=== PATIENT | male | born 1950 | race Caucasian/White ===

== ENCOUNTER 2020-05-25 11:16 | Emergency (ER) | payer MEDICARE ==
[~2020-05-25] VITALS: Ht 182.3 cm; Wt 100.0 kg
[2020-05-25 11:48] LABS: WHITE BLOOD COUNT 4.5 10^3/uL (4.3-11.0)
[2020-05-25 11:49] LABS: BASOPHILS % (AUTO) 1 % (0-10); EOSINOPHILS # (AUTO) 0.2 10^3/uL (0.0-0.3); EOSINOPHILS % (AUTO) 5 % (0-10); HEMATOCRIT 41 % (40-54); HEMOGLOBIN 14.1 G/DL (13.3-17.7); LYMPHOCYTES # (AUTO) 1.3 X 10^3 (1.0-4.0); LYMPHOCYTES % (AUTO) 28 % (12-44); MEAN CORPUSCULAR HEMOGLOBIN 32 PG (25-34); MEAN CORPUSCULAR HGB CONC 35 G/DL (32-36); MEAN CORPUSCULAR VOLUME 92 FL (80-99); MEAN PLATELET VOLUME 9.2 FL (7.4-10.4); MONOCYTES # (AUTO) 0.4 X 10^3 (0.0-1.0); MONOCYTES % (AUTO) 9 % (0-12); NEUTROPHILS # (AUTO) 2.6 X 10^3 (1.8-7.8); NEUTROPHILS % (AUTO) 57 % (42-75); PLATELET COUNT 253 10^3/uL (130-400)
--- NOTE | 2020-05-25 11:52 | ED Cardiac General ---
History of Present Illness General Chief Complaint: Chest Pain Stated Complaint: CHEST PAIN Nursing Triage Note: Patient reports sudden onset of left precordial chest pain this morning approximately 2 hours prior to arrival to the ED. He described it as a tightness, rates it 3/10. He reports a significant cardiac history of 5 stents, VT, and atrial fibrillation with cardiac ablation. History of Present Illness Date Seen by Provider: May 25, 2020 Time Seen by Provider: 11:20 Initial Comments 69-year-old male with past medical history significant for coronary artery disease, VT in 1997, subsequently 5 stents and a cardiac ablation for SVT presents with chest tightness for the past 2 days, associated shortness of air is worse with minor exertion. Denies any recent illness, fever or chills, cough or wheezing. Denies abdominal pain nausea or vomiting. Sees cardiology at [facility]. Last Cath September 2019. NTG SL UNDERPRESSER HAND: Yes ASA po UNDERPRESSER HAND: Yes Allergies and Home Medications Allergies Coded Allergies: codeine (Verified Allergy, Unknown, 05/25/20) morphine (Verified Allergy, Unknown, 05/25/20) Patient Home Medication List Home Medication List Reviewed: Yes Review of Systems Review of Systems Constitutional: No dizziness, No fever, No malaise, No weakness Respiratory: Denies Cough, Denies Shortness of Air; SOA With Exertion; Denies SOA at Rest, Denies Stridor, Denies Wheezing Cardiovascular: Denies Chest Pain (specifically states, not pain, just tightness), Denies Edema, Denies Irregular Heart Rate, Denies Lightheadedness; Palpitations; Denies Syncope Gastrointestinal: Denies Abdominal Pain, Denies Constipated, Denies Diarrhea, Denies Poor Appetite, Denies Vomiting Musculoskeletal: No back pain, No joint pain Skin: No change in color, No lesions, No lumps Past Pbghrit-Libgeh-Pimnnk Hx Past Med/Social Hx: Reviewed Nursing Past Med/Soc Hx Patient Social History Recent Foreign Travel: No Contact w/Someone Who Travel: No Recent Infectious Disease Expo: No Physical Exam Vital Signs Vital Signs - First Documented 05/25/20 05/25/20 11:20 11:27 Temp 36.5 Pulse 98 Resp 15 B/P (MAP) 154/88 (110) Pulse Ox 98 O2 Delivery Room Air Capillary Refill : Less Than 3 Seconds Height, Weight, BMI Height: '" Weight: lbs. oz. kg; 30.00 BMI Method: General Appearance: No Apparent Distress, WD/WN HEENT: PERRL/EOMI, Normal ENT Inspection Neck: Full Range of Motion, Non Tender, Supple Respiratory: Chest Non Tender, Lungs Clear Cardiovascular: Regular Rate, Rhythm, No Edema, No Gallop, No JVD, No Murmur, Normal Peripheral Pulses Gastrointestinal: Normal Bowel Sounds, Non Tender, Soft Extremity: Normal Capillary Refill, Non Tender, No Calf Tenderness Neurologic/Psychiatric: Alert, Oriented x3, No Motor/Sensory Deficits, Normal Mood/Affect Skin: Normal Color, Warm/Dry Progress/Results/Core Measures Results/Orders Lab Results Laboratory Tests Test 05/25/20 11:25 Range/Units White Blood Count 4.5 4.3-11.0 10^3/uL Red Blood Count 4.47 4.35-5.85 10^6/uL Hemoglobin 14.1 13.3-17.7 G/DL Hematocrit 41 40-54 % Mean Corpuscular Volume 92 80-99 FL Mean Corpuscular Hemoglobin 32 25-34 PG Mean Corpuscular Hemoglobin Concent 35 32-36 G/DL Red Cell Distribution Width 13.2 10.0-14.5 % Platelet Count 253 130-400 10^3/uL Mean Platelet Volume 9.2 7.4-10.4 FL Neutrophils (%) (Auto) 57 42-75 % Lymphocytes (%) (Auto) 28 12-44 % Monocytes (%) (Auto) 9 0-12 % Eosinophils (%) (Auto) 5 0-10 % Basophils (%) (Auto) 1 0-10 % Neutrophils # (Auto) 2.6 1.8-7.8 X 10^3 Lymphocytes # (Auto) 1.3 1.0-4.0 X 10^3 Monocytes # (Auto) 0.4 0.0-1.0 X 10^3 Eosinophils # (Auto) 0.2 0.0-0.3 10^3/uL Basophils # (Auto) 0.0 0.0-0.1 10^3/uL Sodium Level 139 135-145 MMOL/L Potassium Level 4.2 3.6-5.0 MMOL/L Chloride Level 102 98-107 MMOL/L Carbon Dioxide Level 24 21-32 MMOL/L Anion Gap 13 5-14 MMOL/L Blood Urea Nitrogen 14 7-18 MG/DL Creatinine 0.75 0.60-1.30 MG/DL Estimat Glomerular Filtration Rate > 60 BUN/Creatinine Ratio 19 Glucose Level 168 H 70-105 MG/DL Calcium Level 9.6 8.5-10.1 MG/DL Corrected Calcium 9.4 8.5-10.1 MG/DL Total Bilirubin 0.3 0.1-1.0 MG/DL Aspartate Amino Transf (AST/SGOT) 16 5-34 U/L Alanine Aminotransferase (ALT/SGPT) 16 0-55 U/L Alkaline Phosphatase 40 40-136 U/L Troponin I < 0.30 <0.30 NG/ML Total Protein 7.2 6.4-8.2 GM/DL Albumin 4.2 3.2-4.5 GM/DL My Orders Orders - ROVENSTINESAI DO Ed Iv/Invasive Line Start (05/25/20 11:30) Cbc With Automated Diff (05/25/20 11:30) Comprehensive Metabolic Panel (05/25/20 11:30) Troponin I Fs (05/25/20 11:30) Chest 1 View Ap/Pa Only (05/25/20 11:30) Ekg Tracing (05/25/20 11:47) Aspirin Chewable Tablet (Baby Aspirin Ch (05/25/20 12:00) Aspirin Chewable Tablet (Baby Aspirin Ch (05/25/20 12:13) Meclizine Tablet (Antivert Tablet) (05/25/20 12:30) Medications Given in ED Current Medications Medications Dose Ordered Sig/Daisy Route Start Time Stop Time Status Last Admin Dose Admin Aspirin 324 mg ONCE ONCE PO 05/25/20 12:00 05/25/20 12:21 DC 05/25/20 12:18 324 MG Vital Signs/I&O 05/25/20 05/25/20 11:20 11:27 Temp 36.5 Pulse 98 Resp 15 B/P (MAP) 154/88 (110) Pulse Ox 98 O2 Delivery Room Air Room Air Blood Pressure Mean: 110 Progress Progress Note : Progress Note Patient with extensive cardiac history including VT, 5 stents and an ablation. Denies history of atrial fibrillation, states his ablation was for SVT. Currently in A. fib with rate ranging from 50-100 with frequent PVCs. Normal labs. Discussed transfer to [facility] for further monitoring and cardiology consultation. Patient states that he gets [facility] and request something for motion sickness. Given meclizine by mouth. Initial ECG Impression Date: May 25, 2020 Initial ECG Impression Time: 11:25 Initial ECG Rate: 90 Initial ECG Rhythm: A Fib/Flutter Initial ECG Intervals: Normal Initial ECG Impression: Atrial Fibrillation Diagnostic Imaging Comments Date of Exam:05/25/20 CHEST 1 VIEW AP/PA ONLY INDICATION: Chest tightness. FINDINGS: Portable chest. The lungs are well-aerated and clear. No air-trapping. No infiltrate. The heart is not enlarged. No pulmonary edema or hilar adenopathy. No pneumothorax or pleural effusion. No bony abnormalities. IMPRESSION: Normal portable chest. Dictated on workstation # [id number] Dict: 05/25/20 1157 Trans: 05/25/20 1200 [facility] [id number] Interpreted by: BRANDI LEIJA MD Electronically signed by: Departure Impression Primary Impression: Chest pain Qualified Codes: R07.9 - Chest pain, unspecified Additional Impression: New onset a-fib Disposition: 02 XFER SHT-TRM HOSP Condition: Stable Transfer Transfer Reason: Exceeds level of care (Needs Cardio service, pt receives his Cardio care @ [facility] (for continuity of care)) Transfer Progress Notes Spoke to Dr Shanika Cordova @ 1223 she accepts for transfer plans for Cardio consultation Transfer Facility: [facility] Method of Transfer: EMS SAI WARD DO May 25, 2020 11:52
[2020-05-25] MEDS ORDERED: ASPIRIN 81 MG CHEW (CHILDREN'S ASA) PO ONE (12:00)
--- NOTE | 2020-05-25 12:00 | Diagnostic Imaging Report ---
INDICATION: Chest tightness. FINDINGS: Portable chest. The lungs are well-aerated and clear. No air-trapping. No infiltrate. The heart is not enlarged. No pulmonary edema or hilar adenopathy. No pneumothorax or pleural effusion. No bony abnormalities. IMPRESSION: Normal portable chest. Dictated by: Dictated on workstation # [id number]
[2020-05-25 12:09] LABS: ALKALINE PHOSPHATASE 40 U/L (40-136); BILIRUBIN,TOTAL 0.3 MG/DL (0.1-1.0); BUN/CREATININE RATIO 19; CALCIUM 9.6 MG/DL (8.5-10.1); CARBON DIOXIDE 24 MMOL/L (21-32); CHLORIDE 102 MMOL/L (98-107); CREATININE SERUM 0.75 MG/DL (0.60-1.30); GFR ESTIMATED > 60; GLUCOSE 168 MG/DL (70-105); POTASSIUM 4.2 MMOL/L (3.6-5.0); SODIUM 139 MMOL/L (135-145)
[2020-05-25 12:10] LABS: ALANINE AMINOTRANSFERASE 16 U/L (0-55); ALBUMIN 4.2 GM/DL (3.2-4.5); TOTAL PROTEIN 7.2 GM/DL (6.4-8.2)
[2020-05-25] MEDS ORDERED: ASPIRIN 81 MG CHEW (CHILDREN'S ASA) ONE (12:13)
[2020-05-25] MEDS ORDERED: MECLIZINE 25 MG (ANTIVERT) TAB PO ONE (12:30)
[2020-05-25 13:39] VITALS: BP 130/65
== END 2020-05-25 13:39 | disposition short-term general hospital (02) ==
LOC: ER FS 11:20
DX: R07.9 Chest pain, unspecified (principal); I48.91 Unspecified atrial fibrillation; Z88.5 Allergy status to narcotic agent; Z95.5 Presence of coronary angioplasty implant and graft
CPT/HCPCS: 36415; 71045; 80053; 84484; 85025; 93005

== ENCOUNTER 2020-06-08 16:51 | Outpatient (RCR) | payer MEDICARE ==
[2020-05-31 11:56] LABS: INR 1.5 (0.8-1.4); PROTHROMBIN TIME PATIENT 17.9 SEC (12.2-14.7)
[2020-06-02 09:03] LABS: INR 2.1 (0.8-1.4); PROTHROMBIN TIME PATIENT 23.3 SEC (12.2-14.7)
[2020-06-08 17:11] LABS: INR 2.7 (0.8-1.4); PROTHROMBIN TIME PATIENT 28.7 SEC (12.2-14.7)
[2020-06-16 11:07] LABS: INR 4.4 (0.8-1.4); PROTHROMBIN TIME PATIENT 41.5 SEC (12.2-14.7)
[2020-06-23 11:15] LABS: INR 2.7 (0.8-1.4); PROTHROMBIN TIME PATIENT 29.2 SEC (12.2-14.7)
== END 2020-08-29 | disposition home or self-care (01) ==
LOC: LAB FS 16:51
PROVIDERS: ATTEND Internal Medicine Cardiovascular Disease
DX: I48.11 Longstanding persistent atrial fibrillation (principal)
CPT/HCPCS: 36415; 85610

== ENCOUNTER → 2020-11-18 | Outpatient (CLI) | payer MEDICARE ==
[~2020-11-18] MED LIST: BARIUM SUSPENSION 2.1% (VANILLA SILQ) 450 ML PO ONE
--- NOTE | 2020-11-18 11:51 | Diagnostic Imaging Report ---
EXAMINATION: CT Abdomen without intravenous contrast. TECHNIQUE: Multiple contiguous axial images were obtained through the abdomen without the administration of intravenous contrast. All CT scans use one or more of the following dose optimizing techniques: automated exposure control, MA and/or KvP adjustment based on a patient size and exam type, or iterative reconstruction. HISTORY: Abdominal pain and diarrhea. COMPARISON: None available. FINDINGS: Limited views of the lower thorax show pacemaker leads. 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 The liver is normal without focal lesion. There is no biliary ductal dilation. Gallbladder is normal. Pancreas is normal. Spleen is normal. Adrenal glands are normal. The kidneys are normal. There is no hydronephrosis. Visualized bowel is normal in caliber without obstruction or inflammation. No free fluid or air. No abdominal lymphadenopathy. Aorta is normal in caliber without aneurysm. There are no suspicious osseous lesions. IMPRESSION: 1. No acute abnormality in the abdomen. Dictated by: Dictated on workstation # [id number]
== END ==
LOC: RAD FS 10:24
PROVIDERS: ATTEND Family Medicine
DX: R10.9 Unspecified abdominal pain (principal); R19.7 Diarrhea, unspecified
CPT/HCPCS: 74150